=== PATIENT | male | born 2000 | race Caucasian/White ===

== ENCOUNTER 2019-03-04 12:06 | Emergency (ER) | payer MEDICAID, OTHER ==
[~2019-03-04] VITALS: Ht 180.3 cm; Wt 90.7 kg
[2019-03-04 12:06] VITALS: BP 0/0
[2019-03-04] MEDS ORDERED: DEXTROSE (50%) 50ML SYRG IV ONE (12:09)
[2019-03-04] MEDS ORDERED: SODIUM BICARBONATE 8.4% INJ 50ML SYRINGE IV ONE (12:09)
[2019-03-04] MEDS ORDERED: EPINEPHrine HCL 1 MG/10 ML SYRG IV ONE (12:09)
== END 2019-03-04 12:15 | disposition expired ==
LOC: EDBD 12:06 → ER 12:08
DX: I46.9 Cardiac arrest, cause unspecified (principal); S02.82XA Fracture of other specified skull and facial bones, left side, initial encounter for closed fracture; V49.9XXA Car occupant (driver) (passenger) injured in unspecified traffic accident, initial encounter; Y93.89 Activity, other specified; Y92.488 Other paved roadways as the place of occurrence of the external cause; Y99.8 Other external cause status
CPT/HCPCS: 31500; 71045; 92950; 99285; J0171; J7042